=== PATIENT | female | born 1955 | race Caucasian/White ===

== ENCOUNTER 2019-06-01 14:23 | Emergency (ER) | payer MEDICARE, MEDICAID ==
[~2019-06-01] VITALS: Ht 167.6 cm; Wt 50.0 kg
[~2019-06-01 14:23] MED LIST: ALB0.5UD IH; AMLO10TA4 PO; ATEN-169 PO; BUDE10.2 INH; FLUT1DIS INH; GABA300C PO; LISI40TA4 PO
[2019-06-01] MEDS ORDERED: amLODIPine 5mg tablet PO ONE (14:50)
[2019-06-01] MEDS ORDERED: lisinopril 20mg tablet PO ONE (14:50)
[2019-06-01] MEDS ORDERED: atenolol 50mg tablet PO ONE (14:50)
[2019-06-01] MEDS ORDERED: normal saline 1000ML IV soln IVB ONE (14:50)
[2019-06-01] MEDS ORDERED: loperamide 2mg capsule PO ONE (15:00)
[2019-06-01 15:10] VITALS: BP_DIAS 106
[2019-06-01 15:11] LABS: BASOPHILS # (AUTO) 0.1 X10'3 (0-0.2); BASOPHILS % (AUTO) 0.5 % (0-1); EOSINOPHILS % (AUTO) 0.2 % (0-6); HEMATOCRIT 50.2 % (35.0-45.0); HEMOGLOBIN 16.7 g/dl (12.0-16.0); LYMPHOCYTES # (AUTO) 0.9 X10'3 (1.1-4.8); LYMPHOCYTES % (AUTO) 6.9 % (21-51); MEAN CORPUSCULAR HEMOGLOBIN 29.9 PG (27.0-31.0); MEAN CORPUSCULAR HGB CONC 33.3 g/dL (33.0-36.5); MEAN CORPUSCULAR VOLUME 89.9 FL (78-98); MEAN PLATELET VOLUME 9.4 FL (7.4-10.4); MONOCYTES % (AUTO) 7.6 % (2-12); NEUTROPHILS # (AUTO) 10.9 X10'3 (1.8-7.7); NEUTROPHILS % (AUTO) 84.8 % (42-75); PLATELET COUNT 273 X10'3 (140-440); RED BLOOD COUNT 5.59 X10'6 (4.20-5.60); RED CELL DISTRIBUTION WIDTH 13.5 % (11.5-14.5); WHITE BLOOD COUNT 12.8 X10'3 (4.5-11.0)
[2019-06-01 15:12] VITALS: BP_SYST 177
[2019-06-01 15:24] LABS: ALANINE AMINOTRANSFERASE 39 U/L (12-78); ALBUMIN 3.6 G/DL (3.4-5.0); ALKALINE PHOSPHATASE 100 IU/L (46-116); ANION GAP 5 (8-16); ASPARTATE AMINO TRANSFERASE 23 U/L (10-37); BILIRUBIN,TOTAL 0.4 MG/DL (0.1-1.0); BLOOD UREA NITROGEN 22 MG/DL (7-18); BUN/CREATININE RATIO 19.8 (6.6-38.0); CALCIUM 9.6 MG/DL (8.5-10.1); CHLORIDE 110 MMOL/L (99-107); CREATININE 1.11 MG/DL (0.40-0.90); GLUCOSE 141 MG/DL (70-104); POTASSIUM 3.5 MMOL/L (3.5-5.1); SODIUM 149 MMOL/L (135-145); TOTAL CARBON DIOXIDE 34.5 MMOL/L (24-32); TOTAL PROTEIN 7.3 G/DL (6.4-8.2); eGFR 49 ML/MIN
--- NOTE | 2019-06-01 15:27 | NUR ---
CHANDNI Argueta at bedside to manually reduction of prolapsed colon. Chaperoned by DIANA Unger.
[2019-06-01] MEDS ORDERED: ketorolac tromethamine 15mg/ml inj. IM ONE (15:30)
[2019-06-01] MEDS ORDERED: LOPE2TAB25 PO (16:23)
[2019-06-01] MEDS ORDERED: cyclobenzaprine 10mg tablet PO ONE (17:00)
== END 2019-06-01 17:51 | disposition home or self-care (01) ==
LOC: ER 14:24
DX: R19.7 Diarrhea, unspecified (principal); R10.12 Left upper quadrant pain; F17.200 Nicotine dependence, unspecified, uncomplicated; Z79.899 Other long term (current) drug therapy
CPT/HCPCS: 36415; 80053; 85025; 96361; 96374; 99284; J1885; J7030